=== PATIENT | female | born 1980 | race Caucasian/White ===

== ENCOUNTER 2018-08-11 17:35 | Emergency (ER) | payer SELFPAY ==
[~2018-08-11] VITALS: Ht 152.4 cm; Wt 100.0 kg
[2018-08-11] MEDS: ACETAMINOPHEN 500 MG TABLET PO ONE (19:50)
[2018-08-11 20:45] VITALS: BP 120/64
== END 2018-08-11 20:50 | disposition home or self-care (01) ==
LOC: EMS 17:36
DX: S93.401A Sprain of unspecified ligament of right ankle, initial encounter (principal); S93.402A Sprain of unspecified ligament of left ankle, initial encounter; S46.911A Strain of unspecified muscle, fascia and tendon at shoulder and upper arm level, right arm, initial encounter; E11.9 Type 2 diabetes mellitus without complications; W17.2XXA Fall into hole, initial encounter; Y93.01 Activity, walking, marching and hiking; Y92.89 Other specified places as the place of occurrence of the external cause; Y99.8 Other external cause status